=== PATIENT | male | born 1985 | race Caucasian/White ===

== ENCOUNTER 2017-11-01 09:20 | Emergency (ER) | payer OTHER ==
[2017-11-01 09:30] VITALS: BP 106/66; PULSE 60; TEMP 98; BMI 27.8
[2017-11-01] MEDS ORDERED: IBUPROFEN 600 MG TABLET (FP) PO ONE ×2 (11:11→11:14)
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
== END 2017-11-01 11:33 | disposition home or self-care (01) ==
LOC: JERFT 09:20
DX: M54.2 Cervicalgia (principal); V49.49XA Driver injured in collision with other motor vehicles in traffic accident, initial encounter; Y92.414 Local residential or business street as the place of occurrence of the external cause; Y93.89 Activity, other specified; Y99.8 Other external cause status
CPT/HCPCS: 99281-25